=== PATIENT | female | born 1990 | race Caucasian/White ===

== ENCOUNTER → 2019-10-18 | Outpatient (CLI) | payer SELFPAY | LOC: RAD 07:46 | DX: Z34.90 Encounter for supervision of normal pregnancy, unspecified, unspecified trimester (principal) ==

== ENCOUNTER → 2020-11-25 | Outpatient (CLI) | payer SELFPAY | LOC: RAD 12:58 | DX: Z34.92 Encounter for supervision of normal pregnancy, unspecified, second trimester (principal) ==